=== PATIENT | female | born 1955 | race Caucasian/White ===

== ENCOUNTER 2020-11-08 09:52 | Inpatient (IN) | payer OTHER ==
[~2020-11-08] VITALS: Ht 154.9 cm; Wt 63.5 kg
--- NOTE | ~2020-11-08 | EMS ---
[address] [address] EMS Patient Care Report Name: PHILIP AZEVEDO Room #: 359-P ADM IN M.R.#: [id number] Admission: 11/08/20 Attend Phys: He Walters MD Discharge: Date of : 59 Report #: [id number] THIS REPORT FOR: //name// Report Transmitted: 11/09/2020 07:24 EMS Care Summary [place], [place]/[facility] Incident [id number] @ 11/08/2020 09:03 Incident Location [address] [place] [address] Patient PHILIP AZEVEDO Female, 65 Years 1955 Patient Address [id number] [place] [id number] Patient History Diabetes,Gastrointestinal Problems,Hyperlipidemia,Hypothyroidism,Hypophosphatemia, Patient Allergies Morphine,Iodine,Bactrim, Patient Medications Compazine, Levothyroxine, Gabapentin, [place], Trulicity, Lisinopril, Duloxetine, Proventil, Metformin, Chief Complaint HYPERGLYCEMIA/HYPOTENSIVE Disposition Transported No Lights/[place] Dispatch Reason Sick Person Transported To [facility] Narrative UPON ARRIVAL STAFF ADVISED THAT THE PATIENTS VITAL SIGNS WERE NOT WITHIN NORMAL [address] [address] EMS Patient Care Report Name: PHILIP AZEVEDO Room #: 359-P ADM IN [place]#: [id number] Admission: 11/08/20 Attend Phys: He Walters MD Discharge: Date of : 59 Report #: [id number] RANGES. SHE SAID THAT THE PATIENTS BLOOD SUGAR WAS HIGH AND HER BLOOD PRESSURE WAS LOW. HER OXYGEN LEVELS WERE LOW WELL. SHE SAID THAT THE PATIENT IS COVID+. PATIENT WAS LIFTED TO OUR COT AND MOVED TO THE AMBULANCE. I OBTAINED IV ACCESS AND ADMINISTERED FLUIDS. SHE WAS TRANSPORTED IN [place] TO [facility]. I DID NOT OBSERVE ANY OBVIOUS INJURIES TO THE PATIENT. Initial Vitals @09:31P: 37,SpO2: 97, @09:36P: 84,R: 12,BP: 61/31,CO: 2,SpO2: 92, @09:33P: 84,R: 17,BP: 65/55,Pain: 4/10,GCS: 15,Glucose: -2,SpO2: 89,Revised Trauma: 10, Assessments @09:24MENTAL:Person Oriented,Time Oriented,Event Oriented,Place Oriented,SKIN:Hot,HEENT:LUNG SOUNDS:ABDOMEN:PELVIS//GI:EXTREMITIES:PULSE:Radial: 2+ Normal,NEURO: Impression Diabetic Hyperglycemia Procedures @09:23ALS AssessmentResponse: UnchangedSucceeded@09:35Normal Saline (.9% NaCl) 100cc (22 ga) Site: Forearm-LeftResponse: UnchangedSucceeded@09:36Oxygen FlowRate: 3 Device: Nasal Cannula (NC) Response: ImprovedSucceeded Timeline 09:01,Call Received :,Dispatch Notified 09:03,Dispatched 09:04,En Route 09:18,On Scene 09:22,At Patient 09:23,ALS Assessment,Response: UnchangedSucceeded, 09:31,BP: / M,PULSE: 37,RR: R,SPO2: 97 Ox,ETCO2: ,BG: ,PAIN: ,GCS: , 09:32,Depart Scene 09:33,BP: 65/55 M,PULSE: 84,RR: 17 R,SPO2: 89 Ox,ETCO2: ,BG: -2,PAIN: 4,GCS: 15, 09:35,Normal Saline (.9% NaCl) 100cc 22 ga Site: Forearm-Left,Response: UnchangedSucceeded, 09:36,BP: 61/31 M,PULSE: 84,RR: 12 R,SPO2: 92 Ox,ETCO2: ,BG: ,PAIN: ,GCS: , 09:36,Oxygen FlowRate: 3 Device: Nasal Cannula (NC) Response: ImprovedSucceeded, 10:04,At Destination 10:04,Call Closed Disclaimer v1.1 Copyright 2020 [employer] [place] [address] EMS Patient Care Report Name: PHILIP AZEVEDO Room #: 359-P [facility] IN M.R.#: [id number] Admission: 11/08/20 Attend Phys: He Walters MD Discharge: Date of : 59 Report #: [id number] This EMS Care Summary contains data elements from the applicable legal record (which may be displayed differently). It is designed to provide pertinent information for the following purposes: continuity of care, clinical quality, and state data reporting. The complete legal record is available to ED staff and administrators of the receiving hospital in [facility]'s Patient Tracker. All data is provided "as is."
[2020-11-08 09:53] VITALS: BP 83/47
[2020-11-08] MEDS ORDERED: BYETTA PEN 51 PENIN1 SUBQ (10:38)
[2020-11-08] MEDS ORDERED: CHOLECALCIFEROL1 GM PER TUBE (10:38)
[2020-11-08] MEDS ORDERED: ELIQUIS5 MG PER TUBE (10:39)
[2020-11-08] MEDS ORDERED: HYDROCODON-ACE1 EA12 PER TUBE (10:40)
[2020-11-08] MEDS ORDERED: PREVACID30 MG PER TUBE (10:41)
[2020-11-08] MEDS ORDERED: LANTUS SUBQ (10:41)
[2020-11-08] MEDS ORDERED: LISINOPRIL5 MG PER TUBE (10:42)
[2020-11-08] MEDS ORDERED: LEVO-T100 MCG PER TUBE (10:42)
[2020-11-08] MEDS ORDERED: SUPER THERAVIT1 EACH PER TUBE (10:43)
[2020-11-08] MEDS ORDERED: METFORMIN HCL500 M3 PER TUBE (10:43)
[2020-11-08] MEDS ORDERED: NOVOLOG100 UNIT/1 SUBQ (10:44)
[2020-11-08] MEDS ORDERED: TIZANIDINE HCL2 M1 PER TUBE (10:45)
[2020-11-08 10:56] LABS: ABSOLUTE NEUTROPHILS 7.2 thou/uL (1.4-8.2); BASOPHILS 0.1 % (0.0-2.0); HEMATOCRIT 33.3 % (37.0-47.0); HEMOGLOBIN 11.1 gm/dL (12.0-15.0); LYMPHOCYTES 17.1 % (24.0-44.0); MCH 28.8 pg (26.0-34.0); MCHC 33.3 g/dL (28.0-37.0); MCV 86.6 fL (80.0-100.0); MONOCYTES 7.5 % (1.0-8.0); PLATELET COUNT 238 thou/uL (150-400); POLYS 75.3 % (36.0-66.0); RBC 3.85 mil/uL (4.20-5.00); RDW 15.1 % (10.5-14.5); WBC 9.5 thou/uL (4.0-11.0)
[2020-11-08 11:09] LABS: ANION GAP 9 mmol/L (7-16); BUN 37 mg/dL (7-18); CALCIUM 7.8 mg/dL (8.5-10.1); CHLORIDE 88 mmol/L (98-107); CO2 26 mmol/L (21-32); CREATININE 0.8 mg/dL (0.6-1.0); GLUCOSE 499 mg/dL (74-106); POTASSIUM 4.5 mmol/L (3.5-5.1); SODIUM 123 mmol/L (136-145)
[2020-11-08 11:14] LABS: LIPASE 594 U/L (73-393); SGOT 39 U/L (15-37); SGPT 23 U/L (30-65); TOTAL BILIRUBIN 0.5 mg/dL (0.2-1.0); TOTAL PROTEIN 5.9 g/dL (6.4-8.2); TROPONIN-I <0.06 ng/mL (<0.06)
--- NOTE | 2020-11-08 12:37 | EKG ---
[address] [place] [address] ELECTROCARDIOGRAM REPORT Name: PHILIP AZEVEDO [facility] #: [facility] [id number] Admission: 11/08/20 Attend Phys: Discharge: Date of : 59 Report #: [id number] [facility] ED Test Date: 2020-11-08 Test Time: 10:01:41 Pat Name: PHILIP AZEVEDO Department: Room: Gender: F Call Person: JS : 1955 Requested By: Landon Murillo Order Number: [id number] MD: Yehuda Fields Measurements Intervals [place] Rate: 79 P: 70 AR: 134 QRS: 58 QRSD: 87 T: -59 QT: 432 QTc: 496 Interpretive Statements Sinus rhythm Low voltage, extremity leads Borderline prolonged QT interval No previous ECG available for comparison Electronically Signed On 11-08-2020 12:36:52 CDT by Yehuda Fields [email or web address] <ELECTRONICALLY SIGNED> By: Yehuda Fields MD, [facility] 11/08/20 1236 1001 1001 Yehuda Fields MD, FACC /EPI
[2020-11-08 13:13] LABS: URINE BLOOD NEGATIVE (Negative); URINE CLARITY SL CLOUDY; URINE COLOR YELLOW; URINE GLUCOSE-RANDOM* TRACE (Negative); URINE KETONES 1+ (Negative); URINE NITRITE-REFLEX NEGATIVE (Negative); URINE PROTEIN (DIPSTICK) TRACE (Negative); URINE SPECIFIC GRAVITY 1.025 (1.005-1.035); URINE UROBILINOGEN 0.2 E.U./dl (0.2-1.0)
[2020-11-08 13:29] LABS: URINE LEUKOCYTES-REFLEX 2+ (Negative)
[2020-11-08 13:30] LABS: ICTOTEST (BILI CONFIRMATORY) Negative (Negative); URINE BILIRUBIN NEGATIVE (Negative)
[2020-11-08 13:38] LABS: SQUAMOUS 0-3 Few /LPF (0-3); YEAST-REFLEX Present (None Seen)
[2020-11-08 13:39] LABS: AMORPHOUS URATES Few /LPF (None Seen); BACTERIA-REFLEX 1-9 Few /HPF (None Seen); CASTS None Seen /LPF (None Seen); URINE RBC None Seen /HPF (NONE SEEN); URINE WBC-REFLEX >25 Many /HPF (0-5)
[2020-11-08 14:28] LABS: BE(vivo) -0.1 mmol/L (-2 to +3); HCO3 23.9 mmol/L (22.0-26.0); PCO2 36.8 mmHg (35.0-45.0); PO2 72.4 mmHg (80.0-100.0); pH 7.431 (7.360-7.450); sO2 95.1 % (92.0-98.0)
[2020-11-08 23:23] VITALS: BP 114/64
[2020-11-08 23:47] VITALS: BP 131/70
--- NOTE | 2020-11-09 01:42 | NUR ---
ADMISSION NOTE: PT ALERT AND ORIENTED TO PERSON, SHE IS UNSURE OF PLACE AND TIME AND SITUATION. PICTURES OF WOUNDS TAKEN. 3 LITERS N/C OXYGEN. DENIES PAIN. HOWEVER, SHE MOANS WHEN TOUCHED OR MOVED. RESTING QUIETLY.
[2020-11-09 04:32] VITALS: BP 136/73
[2020-11-09 07:06] LABS: HEMATOCRIT 34.3 % (37.0-47.0); HEMOGLOBIN 11.5 gm/dL (12.0-15.0); MCH 28.7 pg (26.0-34.0); MCHC 33.5 g/dL (28.0-37.0); MCV 85.6 fL (80.0-100.0); MONOCYTES 4.3 % (1.0-8.0); PLATELET COUNT 233 thou/uL (150-400); POLYS 85.7 % (36.0-66.0); RBC 4.01 mil/uL (4.20-5.00); RDW 15.1 % (10.5-14.5); WBC 8.1 thou/uL (4.0-11.0)
[2020-11-09 07:32] VITALS: BP 142/73
[2020-11-09 07:35] LABS: D-DIMER 1.27 ug/mLFEU (0.19-0.50); INR 1.06; PROTIME 11.5 Seconds (10.5-12.1)
[2020-11-09 07:46] LABS: ANION GAP 9 mmol/L (7-16); BUN 24 mg/dL (7-18); CALCIUM 8.8 mg/dL (8.5-10.1); CHLORIDE 97 mmol/L (98-107); CO2 27 mmol/L (21-32); CREATININE 0.5 mg/dL (0.6-1.0); DIRECT BILIRUBIN 0.2 mg/dL (<0.1-0.2); GLUCOSE 328 mg/dL (74-106); MAGNESIUM 1.8 mg/dL (1.8-2.4); PHOSPHORUS 2.4 mg/dL (2.5-4.9); POTASSIUM 4.4 mmol/L (3.5-5.1); SGOT 29 U/L (15-37); SGPT 21 U/L (30-65); TOTAL BILIRUBIN 0.3 mg/dL (0.2-1.0); TOTAL PROTEIN 6.7 g/dL (6.4-8.2)
[2020-11-09 07:48] LABS: SODIUM 133 mmol/L (136-145)
[2020-11-09 09:32] LABS: CHOLESTEROL 106 mg/dL (<200); HDL CHOLESTEROL 26 mg/dL (>40); LDL CHOLESTEROL 47 mg/dL (<100); LIPASE 320 U/L (73-393); TC:HDL 4.1 Ratio (Not establshd); TRIGLYCERIDE 168 mg/dL (<150); VLDL 34 mg/dL (<40)
--- NOTE | 2020-11-09 09:51 | NUR ---
WOUND CARE CONSULT; THIS PATIENT HAS ASSESSED AND FOUND TO HAVE DEEP TISSUE INJURIES TO THE LEFT HIP (STABLE) AND TO THE SACRAL/COCCYX/BILTERAL BUTTOCKS REGIONS. THERE IS ERYTHEMA WHICH IS LIKELY INFLAMMATION VS INFECTION? RECCOMMENDATIONS; -CONSULT DR MORRIS -ADD A LOW AIR LOSS BED PUMP -SACRAL FOAM FOR NOW
[2020-11-09 11:28] VITALS: BP 139/67
--- NOTE | 2020-11-09 14:04 | NUR ---
INITIAL ASSESSMENT: Received consult. KHADIJAH reviewed chart and spoke with nursing and attending physician. Pt was admitted from [facility] due to COVID. Pt placed in Enhanced Isolation. Pt is afebrile and on 3L of O2. Pt is on IV abx and IV steorids. Remdesivir and Ivermectin started. KHADIJAH left voice message for pt's spouse, Mushtaq at [phone] to obtain info for assessment and discuss discharge planning. Per chart, pt is alert/orientated to self. Pt has had several hospitalizations since August of 2020. Pt had a right tib/fib fx and then went to [facility], where she developed a sacaral decub ulcer. Pt has had a colostomy and feeding tube placed at [facility]. Pt returned to [facility] and then was transferred to [facility] due to having positive COVID test. PT/OT ordered to evaluate pt for discharge needs. Pt may benefit from inpt acute rehab or LTAC, as her insurance does not cover skilled rehab services in a [facility] care facility. KHADIJAH is following to assist as needed with discharge planning.
--- NOTE | 2020-11-09 14:39 | NUR ---
PT ON PEG TUBE FEEDINGS PER INFORMATION FROM SNF. THIS RN VERIFIED WITH DR VALDERRAMA, NEW ORDERS FOR GLUCERNA 1.2 AT GOAL OF 60/HR WITH WATER FLUSH 100ML Q4H ENTERED. SPECIALTY BED ORDERED WAS NOT INFLATING/HAD ISSUES. COMPANY WILL FIX/RETURN WITH WORKING BED.
[2020-11-09 17:12] VITALS: BP 173/95
[2020-11-09 19:45] VITALS: BP 141/66
[2020-11-10 02:06] LABS: GLYCOHEMOGLOBIN (HGB A1C) 7.3 % (4.8-5.6)
[2020-11-10 03:06] LABS: HIV ANTIBODY Non Reactive (Non Reactive)
[2020-11-10 03:55] VITALS: BP 141/71
--- NOTE | 2020-11-10 06:00 | NUR ---
Patient making slow progress towards outcome goals. Oriented only to person. Weak, touch call light within reach. Transfered to specialty bed due to wounds. Good urine output, noguera patent. Tolerating tube feeding, rate up to 50 ml/hr goal rate 60 ml/hr. Vital signs and rhythm stable.
[2020-11-10 07:43] VITALS: BP 173/89
[2020-11-10 08:26] LABS: HEMATOCRIT 36.3 % (37.0-47.0); MCH 28.7 pg (26.0-34.0); MCHC 33.2 g/dL (28.0-37.0); MCV 86.6 fL (80.0-100.0); RBC 4.19 mil/uL (4.20-5.00); RDW 15.3 % (10.5-14.5); WBC 7.3 thou/uL (4.0-11.0)
[2020-11-10 08:33] LABS: PLATELET COUNT 358 thou/uL (150-400)
[2020-11-10 08:39] LABS: CALCIUM 9.3 mg/dL (8.5-10.1); CREATININE 0.6 mg/dL (0.6-1.0); POTASSIUM 4.3 mmol/L (3.5-5.1)
[2020-11-10 08:45] LABS: ALBUMIN 2.3 g/dL (3.4-5.0); DIRECT BILIRUBIN 0.1 mg/dL (<0.1-0.2); PHOSPHORUS 1.6 mg/dL (2.6-4.7); TOTAL BILIRUBIN 0.3 mg/dL (0.2-1.0); TOTAL PROTEIN 6.8 g/dL (6.4-8.2)
--- NOTE | 2020-11-10 09:32 | NUR ---
Agree with glucerna 1.2 at 60ml/hr. Pt needs phos replacement, 1.6.
[2020-11-10 10:14] LABS: ABSOLUTE NEUTROPHILS 5.3 thou/uL (1.4-8.2); METAMYELOCYTES 1 %; PLATELET ESTIMATE NORMAL
[2020-11-10 11:36] VITALS: BP 152/74
--- NOTE | 2020-11-10 12:07 | NUR ---
KHADIJAH reviewed chart and spoke with nursing and attending physician. Pt remains in Enhanced Isolation due to COVID. Pt is afebrile and on 3L of O2. Pt is on IV abx and IV steroids. Remdesivir and Ivermectin started. No weekend discharge planned. KHADIJAH spoke with pt's , Mushtaq, via phone. Introduced role of SW. Lengthy discussion with pt's regarding pt's recent medical history. Pt with hx of Inclusion Body Myositis. Prior to first hospitalization at [facility], pt was able to ambulate independently at home with walker. Pt's family assisted her to get up/down the stairs in the home. Pt also does have a w/c for long distances. Pt's spouse states that their oldest daughter unexpectedly in September. Pt was not able to attend the due to being in the hospital. Pt's spouse states the goal is to get pt closer to them. They live near [place], [place]. KHADIJAH discussed potential options for LTAC or inpt acute rehab depending on pt's tolerance of therapy. Pt's spouse states that she was not receiving therapy at [facility] and [facility] because she was non-weight bearing. Pt is able to bear weight now. Pt's spouse is open to any facility closer to where they live. KHAIDJAH provided pt's spouse with number to the nurses station. KHADIJAH contacted [facility] and spoke with Nuvia in their rehab dept, who states they do not have an inpt acute rehab unit. Closest inpt rehab unit to family is [facility]. KHADIJAH spoke with Eryn, with [facility], who is willing to review pt's info next week. KHADIJAH updated attending physician. KHADIJAH is following to assist as needed with discharge planning.
[2020-11-10 15:48] VITALS: BP 134/78
--- NOTE | 2020-11-10 18:41 | NUR ---
ASSUMED PATIENT CARE AT 0700. ALERT AND CONFUSED WITH HALLUCINATION. TOLERATED TF. ASSISTED TURN. VSS. WILL KEEP MONITOR.
[2020-11-10 19:58] VITALS: BP 150/81
--- NOTE | 2020-11-10 22:52 | NUR ---
PT RESTING IN BED WITH FRANCISCO MATTRESS. PT ALERT TO SELF, HALLUCINATING AND TALKING ABOUT DOGS, SHOPPING, UPS, GETTING TO SHOWER. FLAT AFFECT, BILAT HAND EDEMA, LUNGS WITH WHEEZES, LOOSE COUGH, FLUSHED SKIN TONE. MALAGON TO DD. PEG TUBE INTACT WITH FEEDING. BLE IN PRAFO BOOTS. BED ALARM ON.
[2020-11-11 04:55] VITALS: BP 155/95
[2020-11-11 05:08] LABS: HEMATOCRIT 36.4 % (37.0-47.0); HEMOGLOBIN 12.2 gm/dL (12.0-15.0); MCH 29.1 pg (26.0-34.0); MCHC 33.4 g/dL (28.0-37.0); MCV 87.3 fL (80.0-100.0); PLATELET COUNT 422 thou/uL (150-400); RBC 4.17 mil/uL (4.20-5.00); WBC 9.4 thou/uL (4.0-11.0)
[2020-11-11 05:22] LABS: CALCIUM 8.9 mg/dL (8.5-10.1); CREATININE 0.6 mg/dL (0.6-1.0); POTASSIUM 4.9 mmol/L (3.5-5.1)
[2020-11-11 05:27] LABS: ALBUMIN 2.1 g/dL (3.4-5.0); DIRECT BILIRUBIN 0.2 mg/dL (<0.1-0.2); PHOSPHORUS 1.7 mg/dL (2.5-4.9); TOTAL BILIRUBIN 0.3 mg/dL (0.2-1.0); TOTAL PROTEIN 6.9 g/dL (6.4-8.2)
[2020-11-11 06:11] LABS: ABSOLUTE NEUTROPHILS 6.2 thou/uL (1.4-8.2); PLATELET ESTIMATE NORMAL
[2020-11-11 07:43] VITALS: BP 136/79
[2020-11-11 11:25] VITALS: BP 117/73
[2020-11-11 15:41] VITALS: BP 129/76
--- NOTE | 2020-11-11 18:12 | NUR ---
ASSUMED PATIENT CARE AT 0700. ALERT AND CONFUSED. HALLUCINATION. VSS. TOLERATED ON RA. PATIENT HAS LOOSE STOOL. FMS PLACED AT 1600. SLOWLY TOWARDS POC GOALS.
[2020-11-11 20:54] VITALS: BP 115/93
[2020-11-12 04:10] VITALS: BP 135/89
[2020-11-12 04:53] LABS: HEMATOCRIT 38.9 % (37.0-47.0); HEMOGLOBIN 13.2 gm/dL (12.0-15.0); MCH 29.1 pg (26.0-34.0); MCHC 33.9 g/dL (28.0-37.0); MCV 85.7 fL (80.0-100.0); RBC 4.54 mil/uL (4.20-5.00); RDW 14.9 % (10.5-14.5); WBC 11.2 thou/uL (4.0-11.0)
[2020-11-12 05:20] LABS: CALCIUM 8.8 mg/dL (8.5-10.1); CREATININE 0.6 mg/dL (0.6-1.0); PLATELET COUNT 572 thou/uL (150-400); POTASSIUM 4.1 mmol/L (3.5-5.1)
[2020-11-12 05:36] LABS: ALBUMIN 2.3 g/dL (3.4-5.0); DIRECT BILIRUBIN 0.1 mg/dL (<0.1-0.2); PHOSPHORUS 2.5 mg/dL (2.5-4.9); TOTAL BILIRUBIN 0.3 mg/dL (0.2-1.0)
--- NOTE | 2020-11-12 06:36 | NUR ---
Pt. oriented to person only. Hollers when being repositioned. Pain med given with some relief. Tolerating room air well with no respiratory distress. Cont. on enhanced precaution,afebrile. Tolerating tube feeding well with no gastric residual. Fecal mgt. system in place. 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 NS 500 ml bolus given. Repeat lactic acid still critical but lower than the first. [employer] notified.IV fluids started as ordered.
[2020-11-12 07:20] LABS: ABSOLUTE NEUTROPHILS 8.5 thou/uL (1.4-8.2); METAMYELOCYTES 1 %; PLATELET ESTIMATE NORMAL
[2020-11-12 08:00] VITALS: BP 146/92
[2020-11-12 08:18] LABS: T-SPOT.TB Negative
[2020-11-12 12:35] VITALS: BP 128/80
[2020-11-12 16:00] VITALS: BP 142/77
--- NOTE | 2020-11-12 18:05 | NUR ---
ASSUMED PATIENT CARE AT 0700. ALERT. VSS. TOLERATED ON RA. ASSISTED TURN. FMS INTACTED. SLOWLY TOWARDS POC GOALS.
[2020-11-12 19:32] VITALS: BP 104/54
[2020-11-13 03:55] VITALS: BP 125/56
--- NOTE | 2020-11-13 05:17 | NUR ---
Pt. slept fair during the night in between cares. She has been repositioned. Tolerating room air well with O2 sat up to 100%. Occasional loose cough. Pt. is confused , oriented to person only but follows simple commands. Cont. on enhanced precaution , afebrile. Kept NPO , oral care done. TF per peg with minimal gastric residual. Fecal mgt. system in place with large amount of loose bm in dge bag. Lasix given last night x1 and diuresed well. Pt. only in pain when being turned. Z guard applied to buttocks.
[2020-11-13 05:36] LABS: ABSOLUTE NEUTROPHILS 8.1 thou/uL (1.4-8.2); BASOPHILS 0.2 % (0.0-2.0); HEMATOCRIT 34.6 % (37.0-47.0); HEMOGLOBIN 11.8 gm/dL (12.0-15.0); LYMPHOCYTES 15.2 % (24.0-44.0); MCH 29.2 pg (26.0-34.0); MCV 85.9 fL (80.0-100.0); MONOCYTES 13.3 % (1.0-8.0); PLATELET COUNT 558 thou/uL (150-400); POLYS 71.3 % (36.0-66.0); RBC 4.03 mil/uL (4.20-5.00); RDW 14.9 % (10.5-14.5); WBC 11.3 thou/uL (4.0-11.0)
[2020-11-13 05:43] LABS: ALBUMIN 2.3 g/dL (3.4-5.0); CALCIUM 8.4 mg/dL (8.5-10.1); CREATININE 0.5 mg/dL (0.6-1.0); MAGNESIUM 1.6 mg/dL (1.8-2.4); PHOSPHORUS 4.4 mg/dL (2.5-4.9); POTASSIUM 4.5 mmol/L (3.5-5.1); TOTAL BILIRUBIN 0.3 mg/dL (0.2-1.0); TOTAL PROTEIN 5.9 g/dL (6.4-8.2)
[2020-11-13 07:21] VITALS: BP 123/72
--- NOTE | 2020-11-13 11:00 | HC ---
[facility] [place] [address] CONSULTATION Name: PHILIP AZEVEDO Room #: 359- ADM IN M.R.#: [id number] Admission: 11/08/20 Attend Phys: He Walters MD Discharge: Date of : 59 Report #: [id number] THIS REPORT FOR: cc: Obed Cavanaugh MD, Srinath MD Althoff,Shravan Pappas MD ~ DATE OF SERVICE: 11/09/2020 CHIEF COMPLAINT: Sacral pressure ulcer and deep tissue injuries to the heels. HISTORY OF PRESENT ILLNESS: This is a 65-year-old female patient who was admitted through the Emergency Department from [facility] due to hypoxia and altered mental status. She had significant hyperglycemia, was noted to have multiple ulcerations for which I have been asked to see her. She is awake, but she is confused and not able to provide much information about herself. She was noted to have recently been COVID positive and has been admitted. I have been asked to see her with regard to wound care. PAST MEDICAL HISTORY: Positive for history of recent COVID-19 infection, history of pancreatitis, type 2 diabetes mellitus, hypothyroidism, hypertension, previous right leg fracture, prior pressure ulcerations. She has significant dysphagia and status post PEG tube placement. SOCIAL HISTORY: Unknown for alcohol or tobacco use. FAMILY HISTORY: Unknown. REVIEW OF SYSTEMS: Not obtainable due to her confusion and any pertinents are contained in the history of present illness. ALLERGIES: INCLUDE IODINE, MORPHINE, SULFA, TRIMETHOPRIM. MEDICATIONS: Include [place], cholecalciferol, Eliquis, Prevacid, Lantus, Zestril, metformin, tizanidine. PHYSICAL EXAMINATION: VITAL SIGNS: At this time include temperature 36.8, pulse 94, respiration 18, blood pressure ____/67. GENERAL: This is a somewhat chronically ill-appearing female patient who appears to be in minimal distress. HEAD: Normocephalic. NECK: Supple. LUNGS: Diminished. HEART: Regular rhythm. ABDOMEN: Soft and nontender. PEG tube. [facility] [address] [place] [address] CONSULTATION Name: PHILIP AZEVEDO Room #: 359-P ADM IN M.R.#: [id number] Admission: 11/08/20 Attend Phys: He Walters MD Discharge: Date of : 59 Report #: [id number] SKIN: Sacral region demonstrates what appears to be a stage 3 sacral pressure ulceration as well as a deep tissue injury to her left hip. She has DTIs to her heels bilaterally but they are not open. LABORATORY STUDIES: Include sodium 133, potassium 4.4, chloride 97, CO2 of 27, BUN 24, creatinine 0.5, glucose 328. CRP is 144, albumin is 2.0. White blood cell count 8.1 with a hemoglobin of 11.5. CLINICAL IMPRESSION: 1. Stage 3 sacral pressure ulceration. 2. Deep tissue injury to her left hip region. 3. Deep tissue injuries to bilateral heels. 4. COVID-19 positive with acute hypoxic respiratory failure and pneumonia. 5. Mild urinary tract infection. 6. Acute toxic metabolic encephalopathy. 7. History of prior pulmonary embolus with status post IVC filter. 8. Type 2 diabetes mellitus with hyperglycemia. 9. Severe protein-calorie malnutrition with albumin of 2.0. RECOMMENDATIONS: At this point in time, the patient will need to be placed on a true low air loss mattress. She will need q. 2 hour turning and positioning. We recommend Betadine paint to her heels bilaterally. Recommend barrier cream to the sacral region with q. 2 hour turning and repositioning. Will need Prevalon boots to both heels. She will need aggressive nutritional support to maximize wound healing. I appreciate being asked to see her in consultation. <ELECTRONICALLY SIGNED> By: Shravan Arvizu MD 11/13/20 1100 1015 48 Shravan Arvizu MD /nt
--- NOTE | 2020-11-13 13:52 | NUR ---
KHADIJAH reviewed chart and spoke with nursing and attending physician. Pt remains in Enhanced Isolation due to COVID. Pt is afebrile and not requiring O2. Pt is on IV steroids. KHADIJAH spoke with pt's via phone regarding discharge plan. Pt's is hoping to move pt closer to where their family lives, near [place]. KHADIJAH discussed [facility], if pt meets their admission criteria. Pt's spouse is agreeable with referral to be sent to [facility]. Pt's spouse states he would be agreeable with pt returning to [facility] if she is out of isolation. KHADIJAH faxed referral to [facility] and notified liaisonEryn of new referral. KHADIJAH contacted [facility] post-acute liaison, who will find out the date of pt's COVID positive test date. KHADIJAH is following to assist as needed with discharge planning.
[2020-11-13 15:11] VITALS: BP 127/83
--- NOTE | 2020-11-13 18:33 | NUR ---
VSS. SLOWLY TOWARDS POC GOALS.. TOLERATED ON RA. NO DISDRTESS NOTED.
[2020-11-13 19:50] VITALS: BP 136/80
--- NOTE | 2020-11-14 02:57 | NUR ---
Progress pt alert to self and place. reports pain at a 7 to buttocks and lower back tramadol given with some effect. tube feeding infusing at 60cc/hr no residual noted. noguera in place draining dark yellow urine, fecal management system in place draining brown liquid stool. prafo boots in place boggy heels offloaded. wounds to coccyx and buttocks dry no drainage noted zyguard applied and pt turned q2hrs. pt remains on room air, oral care provided, pericare and catheter care completed. continue poc.
[2020-11-14 03:48] VITALS: BP 130/76
--- NOTE | 2020-11-14 04:12 | NUR ---
Assumed patient care at 0300, patient awake and denies any concerns. Tube feeding infusing. Brown catheter and fecal management intact, draining liquid brown stools.
[2020-11-14 08:06] VITALS: BP 115/72
--- NOTE | 2020-11-14 13:07 | NUR ---
PT MALAGON LEAKING, DR. VALDERRAMA MADE AWARE. GAVE ORDERS TO REPLACE MALAGON. PEG TUBE IN PLACE, TUBE FEEDING RUNNING PER ORDER. ON ROOM AIR. FMS IN PLACE. WOUND CARE COMEPLETED PER ORDER. FALL PRECAUTIONS IN PLACE. DENIES ANY NEEDS BRITTANI, WILL CONTINUE TO MONITOR
--- NOTE | 2020-11-14 14:40 | NUR ---
SW reviewed chart and spoke with nursing and attending physician. Pt remains in Enhanced Isolation due to COVID. Pt is afebrile and on room air. SW provided update to [facility] post acute liaison. Pt's positive COVID test was on 11/02/2020. Liaison to check to see when pt would be able to return to [facility], if [facility] is not an option[facility] SW to fax when notes are available. Pt was sent to [facility] from [facility] for isolation. SW left pt's , Mushtaq, a voice message to provide update. KHADIJAH is following to assist as needed with discharge planning.
[2020-11-14 15:24] VITALS: BP 115/72
[2020-11-14 20:06] VITALS: BP 116/54
[2020-11-15 03:00] VITALS: BP 119/64
--- NOTE | 2020-11-15 07:13 | NUR ---
PROGRESS PT ALERT TO SELF AND PLACE. LUNGS COARSE THROUGHOUT. ABDOMEN SOFT NON TENDER WITH HYPERACTIVE BS. PEG TUBE IN PLACE WITH GLUCERNA TUBE FEEDING INFUSING AT 60CC/HR, MALAGON CATHETER IN PLACE DRAINING CLEAR YELLOW URINE IN ADEQUATE AMOUNTS. FECAL MANAGEMENT SYSTEM IN PLACE STOOL LEAKING FROM AROUND ANUS SO BALLOON DEFLATED AND IT WAS REPOSITIONED WITH EFFECT NO STOOL NOTED LEAKING, DRAINAGE BAG CHANGED. PT WOUND TO COCCYX COVERED WITH FOAM SACRAL DRESSING REMAINS C/D/I PT REPOSITIONED Q2HRS FOR PRESSURE RELIEF AND COMFORT, PRAFO BOOTS IN PLACE HEELS PAINTED WITH BETADINE AND FLOAATED WITH PILLOWS. C/O PAIN TO CHEST FROM COUGHING , SACRUM FROM WOUND , AND RIGHT KNEE GAVE 50 MG TRAMADOL X 2 THIS SHIFT WITH SOME EFFECT PT SLEPT AFTER. PT REFUSES ORAL CARE MOST OF THE TIME BUT WILL ALLOW LIP BALM. PLAN IS TO DC BACK TO [facility] OR ANOTHER REHAB TO RESUME PHYSICAL THERAPY.
[2020-11-15 07:33] VITALS: BP 131/68
[2020-11-15 11:45] VITALS: BP 114/64
--- NOTE | 2020-11-15 14:27 | NUR ---
KHADIJAH reviewed chart and spoke with nursing and attending physician. Pt remains in Enhanced Isolation due to COVID. Pt is afebrile and not requiring O2. Pt is progressing towards goals for discharge. KHADIJAH discussed with [place] post-acute liaison, who states that pt is able to return to [facility] tomorrow, as she will be 14-days post positive COVID test date. KHADIJAH faxed clinical/therapy info to post acute liaison for review. KHADIJAH spoke with both pt's spouse and dtr, Sue, to provide update. [facility] rehab is unable to accept pt at this time, as pt is not participating and unable to tolerate 3 hours of therapy each day. Pt's family verbalized understanding and are agreeable [facility] plan for discharge back to [facility]. Pt's dtr states the facility provides xuan therapy, as pt's Medicaid does not cover therapy services. KHADIJAH explained Medicaid therapy coverage. Eventual goal is for pt to discharge back home. KHADIJAH explained that should pt progress with therapy at [facility], that they can send a referral to an acute rehab facility for review. KHADIJAH explained that insurance auth will be needed. [facility]. Pt's family is aware that discharge may be tomorrow. Pt has a phone and laptop at [facility]. KHADIJAH requested items to be brought to the hospital prior to discharge if possible. Family lives about two hours away. KHADIJAH updated attending physician. KHADIJAH is following to assist as needed with discharge planning.
--- NOTE | 2020-11-15 15:31 | NUR ---
PT ALERT AND ORIENTED X4, DENIES CHEST PAIN NAUSEA AND VOMITTING. PT COMPLAINING OF CHEST PAIN FROM COUGHING, DR. VALDERRAMA MADE AWARE. WOUND CARE AND PICTURES TAKEN. FMS AND MALAGON IN PLACE. PT REFUSE OT, PT AWARE AD WILL ENCOURAGE TO WOK WITH PT/OT. PEGTUBE IN PLACE, RESIDUAL LESS THAN 10ML, TUBE FEEDING RUNNING PER ORDER. FALL PRECAUTIONS IN PLACE.
[2020-11-15 16:51] VITALS: BP 115/50
[2020-11-15 19:40] VITALS: BP 119/63
--- NOTE | 2020-11-16 02:58 | NUR ---
PROGRESS PT ALERT AND ORIENTED X 2 TO 3. MORE AWAKE TODAY THAN PREVIOUS SHIFTS. ASKING APPROPRIATE QUESTIONS ABOUT HER CARE SUCH "WHEN WILL I BE ABLE TO EAT?, WILL I HAVE TO MEASURE MY INSULIN LIKE YOU ARE, OR WILL I BE ABLE TO USE MY PEN? HAS BEEN AWAKE MOST OF THE NIGHT AND DOESN'T RECALL REFUSING THERAPY TODAY STATED SHE MUST HAVE BEEN SLEEPING. VSS LUNGS COARSE, COUGH HAS IMPROVED WITH THE ADDITION OF GUAFENISIN. REMAINS ON ROOM AIR SATS WNL, TELEMETRY INTACT READING SINUS RHYTHM. REPORTING PAIN TO BUTTOCKS AND RIGHT KNEE TAKING TRAMADOL WITH SOME EFFECT. FMS LEAKS WHEN SHE COUGHS, PERICARE GIVEN ZYGUARD AND BARRIER CREAM APPLIED. REFUSED ORAL CARE DOESN'T LIKE THE FEEL OF THE SWABS SAID ITS ONLY GOOD WHEN SHE FEELS LIKE BRUSHING HER TEETH. SHE DID ALLOW ME TO APPLY PETROLEUM JELLY TO HER CHAPPED LIPS. TF INFUSING AT 60CC/HR NO RESIDUAL NOTED, FLUSHES PER ORDER. PT REPOSITIONED AND HEELS FLOATED REMAINS ON A SPECIALTY BED. CONTINUE POC.
[2020-11-16 04:36] VITALS: BP 121/79
[2020-11-16 07:36] VITALS: BP 136/80
--- NOTE | 2020-11-16 13:17 | NUR ---
DISCHARGE NOTE: KHADIJAH reviewed chart and spoke with nursing and attending physician. Pt is medically stable to discharge to [facility] today. KHADIJAH notified [place] liaison, who confirms they are able to accept pt today. Stretcher van transportation scheduled for 1600 via [employer] per facility's arrangements. KHADIJAH notified attending physician to request d/c ppwk. Pt's phone and laptop will be picked up at [facility] and delivered to [facility] tomorrow. KHADIJAH spoke with pt's via phone to provide update and notify of transportation time. Pt's spouse is aware and in agreement with discharge plan. Pt's spouse to contact [facility] to find out the current visiting restrictions. Chart copy requested. Nursing provided with number to call report. Awaiting final discharge ppwk to fax to the facility when available. KHADIJAH is following to finalize discharge.
[2020-11-16] MEDS ORDERED: TRAMADOL 50 MG50 MG PO (13:40)
[2020-11-16] MEDS ORDERED: PEPCID20 MG PO (13:40)
[2020-11-16] MEDS ORDERED: GLUMETZA500 PO (13:40)
[2020-11-16] MEDS ORDERED: TRADJENTA5 MG PO (13:40)
[2020-11-16] MEDS ORDERED: ZINC SULFATE50 MG PO (13:40)
[2020-11-16] MEDS ORDERED: VITAMIN B-1100 M2 PO (13:40)
[2020-11-16] MEDS ORDERED: GUAIFENESIN DM S5 ML PER TUBE (13:40)
[2020-11-16] MEDS ORDERED: TESSALON PERLE100 MG PO (13:40)
[2020-11-16] MEDS ORDERED: LOPERAMIDE 2 MG2 M1 PO (13:40)
[2020-11-16] MEDS ORDERED: DEXAMETHASO0.1 MG/M1 PO (13:40)
[2020-11-16] MEDS ORDERED: VITAMIN C500 M1 PO (13:40)
--- NOTE | 2020-11-16 16:19 | NUR ---
all belongings packed with pt. iv d/c. FMS taken out per dr. christian. chart copy and scripts given to transportation. [facility] called and report given to susie. pt discharged
== END 2020-11-16 16:37 | DRG 871 ==
LOC: ER 09:52 → 3W 23:38
PROVIDERS: Internal Medicine; Specialist; Student in an Organized Health Care Education/Training Program; ADMIT Internal Medicine; ATTEND Internal Medicine
PROC: XW033E5 Introduction of Remdesivir Anti-infective into Peripheral Vein, Percutaneous Approach, New Technology Group 5 (ICD-10-PCS; principal; 2020-11-08)
PROC: 5A0935A Assistance with Respiratory Ventilation, Less than 24 Consecutive Hours, High Flow/Velocity Cannula (ICD-10-PCS; 2020-11-15)
DX: A41.89 Other specified sepsis (principal); L89.153 Pressure ulcer of sacral region, stage 3; U07.1 COVID-19; J96.01 Acute respiratory failure with hypoxia; J12.82 Pneumonia due to coronavirus disease 2019; G92 Toxic encephalopathy; E43 Unspecified severe protein-calorie malnutrition; E87.1 Hypo-osmolality and hyponatremia; B37.41 Candidal cystitis and urethritis; E83.39 Other disorders of phosphorus metabolism; E66.9 Obesity, unspecified; R53.81 Other malaise; R13.10 Dysphagia, unspecified; S70.02XA Contusion of left hip, initial encounter; S90.32XA Contusion of left foot, initial encounter; S90.31XA Contusion of right foot, initial encounter; E11.65 Type 2 diabetes mellitus with hyperglycemia; E03.9 Hypothyroidism, unspecified; D63.8 Anemia in other chronic diseases classified elsewhere; I10 Essential (primary) hypertension; Z93.1 Gastrostomy status; Z88.2 Allergy status to sulfonamides; Z88.8 Allergy status to other drugs, medicaments and biological substances; Z88.6 Allergy status to analgesic agent; Z91.041 Radiographic dye allergy status; Z86.711 Personal history of pulmonary embolism; Z68.26 Body mass index [BMI] 26.0-26.9, adult; X58.XXXA Exposure to other specified factors, initial encounter; Y93.89 Activity, other specified; Y92.89 Other specified places as the place of occurrence of the external cause; Y99.8 Other external cause status
CPT/HCPCS: 10879